=== PATIENT | male | born 1975 | race Two or more races ===

== ENCOUNTER 2024-10-06 07:16 | Day surgery (SDC) | payer OTHER ==
[2024-10-06] MEDS ORDERED: ONDANSETRON HCL 2 MG/ML VIAL IV ONE (16:15)
[2024-10-06] MEDS ORDERED: DIPHENHYDRAMINE HCL 50 MG/ML VIAL 1ML IV ONE (16:15)
[2024-10-06] MEDS ORDERED: MIDAZOLAM HCL 2 MG/2 ML VIAL IV ONE (16:15)
[2024-10-06] MEDS ORDERED: fentaNYL CITRATE 50 MCG/ML AMPUL IV PUSH ONE (16:15)
== END 2024-10-06 17:15 | disposition home or self-care (01) ==
LOC: AMB-ENDOS 07:16
PROVIDERS: ATTEND Colon & Rectal Surgery
DX: C20 Malignant neoplasm of rectum (principal); K57.32 Diverticulitis of large intestine without perforation or abscess without bleeding; R19.4 Change in bowel habit; K57.20 Diverticulitis of large intestine with perforation and abscess without bleeding; Z93.3 Colostomy status

== ENCOUNTER 2024-12-30 09:45 | Inpatient (IN) | payer OTHER ==
[~2024-12-30] VITALS: Ht 157.5 cm; Wt 87.1 kg
[2024-12-30 11:09] LABS: URINE APPEARANCE Clear; URINE BILIRRUBIN Negative (NEGATIVE); URINE BLOOD Negative; URINE COLOR Yellow; URINE GLUCOSE Negative (NEGATIVE); URINE KETONE Negative (NEGATIVE); URINE LEUKOCYTE Negative; URINE NITRATE Negative; URINE PROTEIN Negative (NEGATIVE); URINE UROBILINOGEN 0.2 E.U./dl
[2024-12-30 11:10] LABS: URINE BACTERIA 7.1 uL (0.0-1933); URINE RBC 3.6 uL (0.0-20.8)
[2024-12-30 11:12] LABS: BASO % 0.8 % (0.1-1.2); EOS # 0.24 (0.04-0.54); EOS % 3.3 % (0.7-7.0); LYMPH # 2.86 (1.18-3.74); LYMPH % 39.4 % (19.3-53.1); MEAN PLATELET VOLUME 10.90 fl (9.4-12.4); MONO # 0.57 (0.24-0.82); MONO % 7.9 % (4.7-12.5); NEUT # 3.51 (1.56-6.13); NEUT % 48.3 % (34.0-71.1); RED CELL DISTRIBUTION WIDTH 12.9 % (11.6-14.4)
[2024-12-30 11:14] LABS: URINE CAST 0.29 uL (0.0-1.40); URINE EPITHELIAL CELLS 0.7 uL (0.0-38.8); URINE WBC 1.5 uL (0.0-23.2)
[2024-12-30 11:41] LABS: INR 1.0
[2024-12-30 11:47] LABS: ALT/SGPT 26.0 U/L (12-78); AST/SGOT 20.0 U/L (15-37); BILIRUBIN TOTAL 0.52 mg/dL (0.3-1.2); BUN CREA RATIO 19.0 (7.0-25.0); CREATININE SERUM 1.06 mg/dL (0.70-1.30); GFR 73.65; GLOBULINA 3.8 G/DL (2.4-3.5); GLUCOSE FASTING 92.0 mg/dL (65-100); OSMOLALITY SERUM 285.0 MOSM/KG (275-295)
[2024-12-30 14:10] VITALS: BP 131/80
[2025-01-05] MEDS ORDERED: CEFTRIAXONE SODIUM 2,000 MG VIAL ONE (08:28)
[2025-01-05] MEDS ORDERED: METRONIDAZOLE/SODIUM CHLORIDE 500 MG/100 ML PIGGYBACK IV ONE (08:28)
[2025-01-05 09:02] LABS: RH POSITIVE
[2025-01-05] MEDS ORDERED: LIDOCAINE HCL 1%/EPINEPHRINE 20ML VIAL IJ ONE (10:32)
[2025-01-05] MEDS ORDERED: BUPIVACAINE HCL/MPF 0.5% 30ML VIAL ONE (10:32)
[2025-01-05] MEDS ORDERED: CHLORHEXIDINE GLUCONATE 120 ML BOTTLE TOP ONE (11:00)
[2025-01-05] MEDS ORDERED: SUGAMMADEX SODIUM 200 MG/2 ML VIAL IV ONE (14:22)
[2025-01-05] MEDS ORDERED: RINGERS SOLUTION,LACTATED 1,000 ML IV SCH (15:00)
[2025-01-05] MEDS ORDERED: ONDANSETRON HCL 2 MG/ML VIAL IV PRN (15:00)
[2025-01-05] MEDS ORDERED: OxyCODONE HCL 5 MG TABLET (ROXICODONE) PO PRN (15:00)
[2025-01-05] MEDS ORDERED: MORPHINE SULFATE 4 MG/ML CARTRIDGE IV PRN (15:00)
[2025-01-05] MEDS ORDERED: GABAPENTIN 300 MG CAPSULE PO SCH (17:00)
[2025-01-05] MEDS ORDERED: MAGNESIUM CHLORIDE 70 MG TABLET.DR PO SCH (17:00)
[2025-01-05] MEDS ORDERED: SIMETHICONE 125 MG CAPSULE PO SCH (17:00)
[2025-01-05] MEDS ORDERED: POLYETHYLENE GLYCOL 3350 17 GM BLIST.PACK PO SCH (17:00)
[2025-01-05 17:23] LABS: BASO % 0.2 % (0.1-1.2); EOS # 0.02 (0.04-0.54); EOS % 0.1 % (0.7-7.0); LYMPH # 1.28 (1.18-3.74); LYMPH % 9.1 % (19.3-53.1); MEAN PLATELET VOLUME 10.60 fl (9.4-12.4); MONO # 0.80 (0.24-0.82); MONO % 5.7 % (4.7-12.5); NEUT # 11.82 (1.56-6.13); NEUT % 84.5 % (34.0-71.1); RED CELL DISTRIBUTION WIDTH 12.8 % (11.6-14.4)
[2025-01-05 17:52] LABS: BUN CREA RATIO 11.0 (7.0-25.0); CREATININE SERUM 1.29 mg/dL (0.70-1.30); GFR 58.72; GLUCOSE FASTING 97.0 mg/dL (65-100); OSMOLALITY SERUM 282.0 MOSM/KG (275-295)
[2025-01-05] MEDS ORDERED: ACETAMINOPHEN 500 MG GEL..CAP PO SCH (18:00)
[2025-01-05] MEDS ORDERED: FAMOTIDINE/PF 20 MG/2 ML VIAL ONE (19:52)
[2025-01-05] MEDS ORDERED: FAMOtidine 10 MG/ML (4ML VIAL) IV SCH (19:56)
[2025-01-05] MEDS ORDERED: SIMETHICONE 125 MG CAPSULE PO ONE (20:47)
[2025-01-05 21:22] VITALS: BP 150/90; O2SAT 97
[2025-01-06 00:28] VITALS: BP 131/79; O2SAT 98
[2025-01-06] MEDS ORDERED: MORPHINE SULFATE 4 MG/ML CARTRIDGE IV STA (05:46)
[2025-01-06] MEDS ORDERED: MAGNESIUM SULFATE IN WATER 2 GM/50 ML PIGGYBAG IV NR (06:30)
[2025-01-06 06:50] LABS: BASO % 0.4 % (0.1-1.2); EOS # 0.13 (0.04-0.54); EOS % 1.3 % (0.7-7.0); LYMPH # 2.14 (1.18-3.74); LYMPH % 21.0 % (19.3-53.1); MEAN PLATELET VOLUME 11.40 fl (9.4-12.4); MONO # 1.13 (0.24-0.82); MONO % 11.1 % (4.7-12.5); NEUT # 6.75 (1.56-6.13); NEUT % 66.0 % (34.0-71.1); RED CELL DISTRIBUTION WIDTH 12.6 % (11.6-14.4)
[2025-01-06 07:07] LABS: BUN CREA RATIO 12.0 (7.0-25.0); CREATININE SERUM 1.02 mg/dL (0.70-1.30); GFR 77.0; GLUCOSE FASTING 96.0 mg/dL (65-100); OSMOLALITY SERUM 281.0 MOSM/KG (275-295)
[2025-01-06] MEDS ORDERED: PANTOPRAZOLE SODIUM 40 MG/VIAL VIAL IV SCH (09:00)
[2025-01-06] MEDS ORDERED: LACTOBACILLUS ACIDOPHILUS 1 CAP CAP PO SCH (09:00)
[2025-01-06 11:08] VITALS: BP 113/72; O2SAT 95
[2025-01-06 16:41] VITALS: BP 134/82; O2SAT 94
[2025-01-06] MEDS ORDERED: ENOXAPARIN SODIUM 40 MG/0.4 ML SYRINGE SUBCUTANEO SCH (17:00)
[2025-01-07] MEDS ORDERED: PIPERACILLIN/TAZOBACTAM SODIUM 3.375 GM VIAL IV SCH
[2025-01-07 00:41] VITALS: BP 102/57; O2SAT 95
[2025-01-07 08:00] VITALS: BP 116/80; O2SAT 96
[2025-01-07] MEDS ORDERED: MAGNESIUM SULFATE IN WATER 2 GM/50 ML PIGGYBAG IV NR (11:00)
[2025-01-07] MEDS ORDERED: NAPH,MB-DB/K PH,MBDB 1 PKT PACKET PO SCH (13:00)
[2025-01-07] MEDS ORDERED: VANCOMYCIN HCL 1,000 MG VIAL IV STA (15:30)
[2025-01-07] MEDS ORDERED: PIPERACILLIN/TAZOBACTAM SODIUM 3.375 GM VIAL IV STA (15:31)
[2025-01-07 16:00] VITALS: BP 116/72; O2SAT 94
[2025-01-07 16:05] LABS: BASO % 0.3 % (0.1-1.2); EOS # 0.28 (0.04-0.54); EOS % 2.9 % (0.7-7.0); LYMPH # 1.74 (1.18-3.74); LYMPH % 18.1 % (19.3-53.1); MEAN PLATELET VOLUME 11.20 fl (9.4-12.4); MONO # 1.01 (0.24-0.82); MONO % 10.5 % (4.7-12.5); NEUT # 6.55 (1.56-6.13); NEUT % 68.0 % (34.0-71.1); RED CELL DISTRIBUTION WIDTH 13.0 % (11.6-14.4)
[2025-01-07] MEDS ORDERED: VANCOMYCIN HCL 1,000 MG VIAL ONE (16:24)
[2025-01-07 16:35] LABS: BUN CREA RATIO 11.0 (7.0-25.0); CREATININE SERUM 1.14 mg/dL (0.70-1.30); GFR 67.72; GLUCOSE FASTING 114.0 mg/dL (65-100); OSMOLALITY SERUM 280.0 MOSM/KG (275-295)
[2025-01-07] MEDS ORDERED: POLYETHYLENE GLYCOL 3350 17 GM BLIST.PACK PO SCH (21:00)
[2025-01-08 01:28] VITALS: BP 111/74; O2SAT 97
[2025-01-08] MEDS ORDERED: VANCOMYCIN HCL 1,000 MG VIAL ONE ×2 (07:57→15:16)
[2025-01-08 08:24] VITALS: BP 129/82; O2SAT 95
[2025-01-08] MEDS ORDERED: VANCOMYCIN HCL 1,000 MG VIAL IV SCH (09:00)
[2025-01-08] MEDS ORDERED: MAGNESIUM CHLORIDE 70 MG TABLET.DR PO SCH (09:00)
[2025-01-08 16:00] VITALS: BP 123/82; O2SAT 95
[2025-01-09 02:32] VITALS: BP 111/74; O2SAT 98
[2025-01-09] MEDS ORDERED: VANCOMYCIN HCL 1,000 MG VIAL ONE ×2 (06:07→13:59)
[2025-01-09 06:55] LABS: BASO % 0.6 % (0.1-1.2); EOS # 0.53 (0.04-0.54); EOS % 7.5 % (0.7-7.0); LYMPH # 1.71 (1.18-3.74); LYMPH % 24.1 % (19.3-53.1); MEAN PLATELET VOLUME 11.00 fl (9.4-12.4); MONO # 0.79 (0.24-0.82); MONO % 11.1 % (4.7-12.5); NEUT # 4.02 (1.56-6.13); NEUT % 56.6 % (34.0-71.1); RED CELL DISTRIBUTION WIDTH 12.6 % (11.6-14.4)
[2025-01-09 07:45] LABS: BUN CREA RATIO 14.0 (7.0-25.0); CREATININE SERUM 0.97 mg/dL (0.70-1.30); GFR 81.59; GLUCOSE FASTING 97.0 mg/dL (65-100); OSMOLALITY SERUM 282.0 MOSM/KG (275-295)
[2025-01-09 08:00] VITALS: BP 113/72; O2SAT 95
[2025-01-09] MEDS ORDERED: NAPH,MB-DB/K PH,MBDB 1 PKT PACKET PO SCH (13:00)
[2025-01-09 16:12] VITALS: BP 113/74; BP 132/76; O2SAT 95; O2SAT 96
[2025-01-10 00:25] VITALS: BP 123/76; O2SAT 98
[2025-01-10] MEDS ORDERED: VANCOMYCIN HCL 1,000 MG VIAL ONE ×2 (07:31→14:23)
[2025-01-10 08:00] VITALS: BP 118/72; O2SAT 96
[2025-01-10 17:06] VITALS: BP 117/73; O2SAT 97
[2025-01-10] MEDS ORDERED: VANCOMYCIN HCL 1,000 MG VIAL IV SCH (21:00)
[2025-01-11 01:40] VITALS: BP 115/70; O2SAT 97
[2025-01-11 08:20] VITALS: BP 112/71; O2SAT 97
[2025-01-11] MEDS ORDERED: VANCOMYCIN HCL 5 MG/ML REDILUIDO IV SCH ×2 (09:00→21:00)
[2025-01-11 16:00] VITALS: BP 120/76; O2SAT 97
[2025-01-12 01:10] VITALS: BP 18/73; O2SAT 97
[2025-01-12 06:13] LABS: BASO % 0.7 % (0.1-1.2); EOS # 0.31 (0.04-0.54); EOS % 4.4 % (0.7-7.0); LYMPH # 1.52 (1.18-3.74); LYMPH % 21.7 % (19.3-53.1); MEAN PLATELET VOLUME 10.40 fl (9.4-12.4); MONO # 0.66 (0.24-0.82); MONO % 9.4 % (4.7-12.5); NEUT # 4.45 (1.56-6.13); NEUT % 63.7 % (34.0-71.1); RED CELL DISTRIBUTION WIDTH 12.4 % (11.6-14.4)
[2025-01-12 06:49] LABS: BUN CREA RATIO 12.0 (7.0-25.0); CREATININE SERUM 1.26 mg/dL (0.70-1.30); GFR 60.33; GLUCOSE FASTING 99.0 mg/dL (65-100); OSMOLALITY SERUM 278.0 MOSM/KG (275-295)
[2025-01-12 08:00] VITALS: BP 172/72; O2SAT 98
[2025-01-12] MEDS ORDERED: NAPH,MB-DB/K PH,MBDB 1 PKT PACKET PO SCH (13:00)
== END 2025-01-12 17:08 | disposition home or self-care (01) | DRG 330 ==
LOC: OB/GYN 01-05 07:00 → SURG 01-05 07:00 → O/R 01-05 08:00 → SURG 01-05 09:30 → SURH 01-05 16:29
PROVIDERS: Internal Medicine; ADMIT Colon & Rectal Surgery; ATTEND Colon & Rectal Surgery
PROC: 0DNW4ZZ Release Peritoneum, Percutaneous Endoscopic Approach (ICD-10-PCS; 2025-01-05)
PROC: 0DTN4ZZ Resection of Sigmoid Colon, Percutaneous Endoscopic Approach (ICD-10-PCS; 2025-01-05)
PROC: 0DJD8ZZ Inspection of Lower Intestinal Tract, Via Natural or Artificial Opening Endoscopic (ICD-10-PCS; 2025-01-05)
PROC: 0DBE4ZZ Excision of Large Intestine, Percutaneous Endoscopic Approach (ICD-10-PCS; principal; 2025-01-05 09:30)
DX: Z43.3 Encounter for attention to colostomy (principal); C20 Malignant neoplasm of rectum; K57.20 Diverticulitis of large intestine with perforation and abscess without bleeding; L03.311 Cellulitis of abdominal wall